=== PATIENT | female | born 1990 | race Caucasian/White ===

== ENCOUNTER 2017-09-25 11:01 | Day surgery (SDC) | payer OTHER ==
[2017-09-25] MEDS ORDERED: Metoclopramide IV* 5 MG/ML 2 ML VIAL IV ONE (12:19)
[2017-09-25 12:30] LABS: ABS Basophils 0 10^3/ul (0-0.2); ABS Eosinophils 0.1 10^3/ul (0-0.6); ABS Lymphocytes 0.5 10^3/ul (1.0-4.8); ABS Monocytes 0.6 10^3/ul (0-0.8); ABS Neutrophils 12.6 10^3/ul (1.5-7.7); ABS Nucleated RBC 0 10^3/ul; Eosinophil % 0.4 % (0-6); Hematocrit 40 % (35-47); Hemoglobin 13.7 g/dl (12.0-16.0); Lymphocyte % 3.5 % (25-47); Mean Corpuscular HGB Conc 35 g/dl (31-36); Mean Corpuscular Hemoglobin 30 pg (27-31); Mean Corpuscular Volume 88 fL (80-97); Mean Platelet Volume 6.5 um3 (7.4-10.4); Nucleated Red Blood Cells % 0.1; Platelet Count 249 10^3/ul (150-450); Red Blood Count 4.52 10^6/ul (4.0-5.4); Red Cell Distribution Width 13 % (10.5-15); White Blood Count 13.7 10^3/ul (3.5-10.8)
[2017-09-25 12:49] LABS: EGFR Non-African American 121.8 (>60)
--- NOTE | 2017-09-25 13:28 | RAD ---
HISTORY: Right lower quadrant pain COMPARISONS: None TECHNIQUE: Multiple transverse and longitudinal ultrasound images were obtained of the right lower quadrant using grayscale and color Doppler imaging. FINDINGS: There is tubular, vermiform, hollow viscus with bowel mucosal signature. This is noncompressible. This measures up to 0.8 cm in diameter. There is mild wall thickening. IMPRESSION: MILDLY DILATED APPENDIX SUGGESTIVE OF ACUTE APPENDICITIS IN THE CORRECT CLINICAL SETTING. THERE IS NO LOCULATED FLUID COLLECTION TO SUGGEST ABSCESS.
[2017-09-25] MEDS ORDERED: Buffered Lidocaine 0.9% SYRIN* 5 ML/SYR SYRINGE INTRADERM ONE (14:14)
[2017-09-25 14:40] LABS: Urine Appearance Clear; Urine Blood Negative (Negative); Urine Color Yellow; Urine Ketones Negative (Negative); Urine Protein Negative (Negative); Urine Specific Gravity 1.008 (1.010-1.030); Urine Urobilinogen Negative (Negative)
--- NOTE | 2017-09-25 15:54 | HP ---
CC: [facility]* DATE OF ADMISSION: 09/25/2017. This patient was seen in the [facility] Emergency Department on 09/25/2017. ATTENDING SURGEON: Dr. Chele Dukes* (dictated by Colleen Sierra NP). CHIEF COMPLAINT: Worsening right lower quadrant abdominal pain. 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 She vomited once. The pain continued throughout the night, but she went to work this morning. The pain worsened throughout the day, especially with any movement. She reports that initially the abdominal pain was more generalized, but now it has localized to the right lower quadrant. She denies any fever or chills. Her last bowel movement was yesterday, described as normal. She denies any dysuria. She last ate yogurt, berries, and a piece of toast at 7:30 this morning and she also drank something at 7:30 this morning. She reports that last week several of her colleagues had some type of viral illness and she was feeling very tired, but denied abdominal pain or associated nausea, vomiting, or fever. She underwent an ultrasound of the appendix which was suggestive of acute appendicitis and her white blood count was elevated at 13.7. Temperature maximum in the emergency department was 99.6. 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 She also reports slight mitral valve regurgitation. She states that she bruises easily and heals slowly. PAST SURGICAL HISTORY: She has never had any surgery. CURRENT MEDICATIONS: Midodrine, Topiramate, Cromolyn Sodium, Wellbutrin, Adderall, Doxycycline for a facial rash, Clindamycin topical for facial rash, and she also has an IUD. ALLERGIES: LATEX. She does not have any known drug allergies. FAMILY HISTORY: Her parents are living, but she has no contact with them. She states that there is a heavy family history of substance abuse and therefore she prefers not to have any opioid prescriptions for postoperative pain. 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 She is a nonsmoker. She denies the use of alcohol or other substances. REVIEW OF SYSTEMS: Constitutional: No fevers or chills. She did feel fatigued last week. She denies any weight loss. Respiratory: No chronic cough or dyspnea on exertion. Cardiovascular: No chest pain or palpitations. Gastrointestinal: No diarrhea or constipation. No GI bleeding. No history of Crohn's disease or colitis. Please see history of present illness for other GI complaints. Genitourinary: No dysuria. No vaginal discharge. Musculoskeletal : Chronic joint pain associated with connective tissue disease. Hypermobility of the joints. Neurologic: No blurred vision. No headache. No history of seizures. General: No history of deep vein thrombosis or pulmonary embolism. She has never received a blood transfusion. PHYSICAL EXAMINATION GENERAL: The patient is a 27-year-old female, well-developed, well-nourished, in no acute distress. VITAL SIGNS: Height 5'8", weight 120 pounds, body mass index 18. Blood pressure 112/64, pulse anywhere from 80 to 100, respiratory rate 18, temperature 99.6, O2 saturation 99 percent on room air. SKIN: Warm, dry, intact. HEENT: Benign. NECK: Supple, no cervical lymphadenopathy. LUNGS: Breath sounds bilaterally clear and equal. HEART: Regular rate and rhythm. No murmurs or rubs appreciated. ABDOMEN: Flat, hypoactive bowel sounds, exquisitely tender in the right lower quadrant over McBurney's point. Mild guarding and rebound tenderness. No obvious masses or organomegaly, but exam is limited by patient's discomfort. EXTREMITIES: Full range of motion. No edema or skin ulcerations. PELVIC: Exam deferred. RECTAL: Exam deferred. NEUROLOGIC: Alert and oriented times three. Steady gait. IMPRESSION: Acute appendicitis. PLAN: Discussed with Dr. Dukes and the patient will go to the operating room later today for laparoscopic appendectomy. TIME SPENT: 60 minutes with greater than 50 percent in face to face history taking and coordination of care. CAROEL SIERRA NP [id number]/[facility] #: [id number] MTDD
[2017-09-25] MEDS ORDERED: ceFAZolin 2 GM PREMIX (*) 2 GM/50 ML BAG IVPB ONE (17:00)
--- NOTE | 2017-09-25 17:33 | ED ---
Abdominal Pain/Female - HPI Summary HPI Summary: Patient is a 27-year-old female who is otherwise healthy presenting to the ED with a chief complaint of right lower quadrant pain, nausea, vomiting since yesterday. She states the pain has been intermittent and is worse now on arrival. She states she feels much improved if she is leaning forward, and symptoms are aggravated by standing up straight or lying flat. She has a decreased appetite. Denies any fevers, sweats, chills. She has never had an abdominal surgery. Denies history of STDs. Denies any vaginal bleeding or vaginal discharge. Denies any UTI symptoms. No history of kidney stones and denies any back pain. Last by mouth intake this morning. - History of Current Complaint Chief Complaint: EDAbdPain Stated Complaint: ABD PAIN Time Seen by Provider: 09/25/17 11:55 Hx Obtained From: Patient ?: No Onset/Duration: Sudden Onset Timing: Constant Severity Initially: Moderate Severity Currently: Moderate Pain Intensity: 0 Pain Scale Used: 0-10 Numeric Location: Discrete At: RLQ Radiates: No Character: Sharp Aggravating Factor(s): Nothing Alleviating Factor(s): Nothing Associated Signs and Symptoms: Positive: Negative - Risk Factors Ectopic Risk Factor: Negative Ovarian Torsion Risk Factor: Negative Allergies/Adverse Reactions: Allergies Allergy/AdvReac Type Severity Reaction Status Date / Time Latex, Natural Rubber Allergy Rash Verified 09/25/17 12:54 Home Medications: Home Medications Amphetamine MIXED SALT TAB* [Adderall TAB*] 10 mg PO TID PRN 09/25/17 [History Confirmed 09/25/17] BuPROPion XL* [Bupropion XL*] 300 mg PO DAILY 09/25/17 [History Confirmed ] Cetirizine* [ZyrTEC 10 MG TAB*] 10 mg PO DAILY 09/25/17 [History Confirmed 09/25] Cromolyn Sodium [Gastrocrom] 100 mg PO QID 09/25/17 [History Confirmed 09/25/17] Doxycycline TAB(NF) [Doxycycline (NF)] 50 mg PO DAILY 09/25/17 [History Confirmed 09/25/17] Midodrine (NF) 10 mg PO TID PRN 09/25/17 [History Confirmed 09/25/17] Ranitidine TAB (NF) [Zantac TAB (NF)] 150 mg PO DAILY 09/25/17 [History Confirmed 09/25/17] PMH/Surg Hx/FS Hx/Imm Hx Previously Healthy: Yes - Immunization History Hx Pertussis Vaccination: No Immunizations Up to Date: Unable to Obtain/Confirm Infectious Disease History: No Infectious Disease History: Denies: Traveled Outside the [place] in Last 30 Days - Social History Occupation: Employed Full-time Lives: With Family Alcohol Use: None Hx Substance Use: No Substance Use Type: Reports: None Hx Tobacco Use: No Smoking Status (MU): Never Smoked Tobacco Review of Systems Constitutional: Negative Negative: Fever, Chills, Fatigue, Skin Diaphoresis Eyes: Negative Cardiovascular: Negative Respiratory: Negative Positive: Abdominal Pain, Vomiting, Nausea. Negative: Diarrhea Genitourinary: Negative Positive: no symptoms reported, see HPI Musculoskeletal: Negative Skin: Negative Psychological: Normal All Other Systems Reviewed And Are Negative: Yes Physical Exam Triage Information Reviewed: Yes Vital Signs On Initial Exam: Initial Vitals Temp Pulse Resp BP Pulse Ox 99.6 F 112 18 117/74 98 09/25/17 11:43 09/25/17 11:43 09/25/17 11:43 09/25/17 11:43 09/25/17 11:43 Vital Signs Reviewed: Yes Appearance: Positive: Well-Appearing, Well-Nourished Skin: Positive: Warm, Skin Color Reflects Adequate Perfusion Head/Face: Positive: Normal Head/Face Inspection Eyes: Positive: EOMI, JOHN, Conjunctiva Clear Neck: Positive: Supple, No Lymphadenopathy Respiratory/Lung Sounds: Positive: Clear to Auscultation, Breath Sounds Present Cardiovascular: Positive: RRR, Pulses are Symmetrical in both Upper and Lower Extremities Abdomen Description: Positive: Soft, McBurney's Point Tenderness. Negative: CVA Tenderness (R), CVA Tenderness (L), Distended Bowel Sounds: Positive: Present Musculoskeletal: Positive: Normal, Strength/ROM Intact Neurological: Positive: Speech Normal Psychiatric: Positive: Normal, Affect/Mood Appropriate AVPU Assessment: Alert Diagnostics - Vital Signs Vital Signs Temp Pulse Resp BP Pulse Ox 09/25/17 17:02 98.6 F 88 16 131/67 100 09/25/17 14:58 98.3 F 80 16 112/72 99 09/25/17 14:03 98.6 F 79 16 112/64 99 09/25/17 11:43 99.6 F 112 18 117/74 98 - Laboratory Lab Results: Lab Results 09/25/17 09/25/17 09/25/17 Range/Units 12:24 12:24 12:24 WBC 13.7 H (3.5-10.8) 10^3/ul RBC 4.52 (4.0-5.4) 10^6/ul Hgb 13.7 (12.0-16.0) g/dl Hct 40 (35-47) % MCV 88 (80-97) fL MCH 30 (27-31) pg MCHC 35 (31-36) g/dl RDW 13 (10.5-15) % Plt Count 249 (150-450) 10^3/ul MPV 6.5 L (7.4-10.4) um3 Neut % (Auto) 91.6 H (38-83) % Lymph % (Auto) 3.5 L (25-47) % [place] % (Auto) 4.2 (0-7) % Eos % (Auto) 0.4 (0-6) % Baso % (Auto) 0.3 (0-2) % Absolute Neuts (auto) 12.6 H (1.5-7.7) 10^3/ul Absolute Lymphs (auto) 0.5 L (1.0-4.8) 10^3/ul Absolute Monos (auto) 0.6 (0-0.8) 10^3/ul Absolute Eos (auto) 0.1 (0-0.6) 10^3/ul Absolute Basos (auto) 0 (0-0.2) 10^3/ul Absolute Nucleated RBC 0 10^3/ul Nucleated RBC % 0.1 ESR 10 (0-14) mm/Hr Sodium 140 (139-145) mmol/L Potassium 3.3 L (3.5-5.0) mmol/L Chloride 107 (101-111) mmol/L Carbon Dioxide 27 (22-32) mmol/L Anion Gap 6 (2-11) mmol/L BUN 9 (6-24) mg/dL Creatinine 0.60 (0.51-0.95) mg/dL Est GFR ( Amer) 156.7 (>60) Est GFR (Non-Af Amer) 121.8 (>60) BUN/Creatinine Ratio 15.0 (8-20) Glucose 96 (70-100) mg/dL Lactic Acid 0.8 (0.5-2.0) mmol/L Calcium 9.0 (8.6-10.3) mg/dL Total Bilirubin 0.80 (0.2-1.0) mg/dL AST 16 (13-39) U/L ALT 14 (7-52) U/L Alkaline Phosphatase 65 (34-104) U/L C-React Prot High Sens 16.16 mg/L Total Protein 6.3 L (6.4-8.9) g/dL Albumin 4.2 (3.2-5.2) g/dL Globulin 2.1 (2-4) g/dL Albumin/Globulin Ratio 2.0 (1-3) Beta HCG, Quant < 0.60 mIU/mL Urine Color Urine Appearance Urine pH (5-9) Ur Specific [place] (1.010-1.030) Urine Protein (Negative) Urine Ketones (Negative) Urine Blood (Negative) Urine Nitrate (Negative) Urine Bilirubin (Negative) Urine Urobilinogen (Negative) Ur Leukocyte Esterase (Negative) Urine Glucose (Negative) 09/25/17 Range/Units 14:27 WBC (3.5-10.8) 10^3/ul RBC (4.0-5.4) 10^6/ul Hgb (12.0-16.0) g/dl Hct (35-47) % MCV (80-97) fL MCH (27-31) pg MCHC (31-36) g/dl RDW (10.5-15) % Plt Count (150-450) 10^3/ul MPV (7.4-10.4) um3 Neut % (Auto) (38-83) % Lymph % (Auto) (25-47) % [place] % (Auto) (0-7) % Eos % (Auto) (0-6) % Baso % (Auto) (0-2) % Absolute Neuts (auto) (1.5-7.7) 10^3/ul Absolute Lymphs (auto) (1.0-4.8) 10^3/ul Absolute Monos (auto) (0-0.8) 10^3/ul Absolute Eos (auto) (0-0.6) 10^3/ul Absolute Basos (auto) (0-0.2) 10^3/ul Absolute Nucleated RBC 10^3/ul Nucleated RBC % ESR (0-14) mm/Hr Sodium (139-145) mmol/L Potassium (3.5-5.0) mmol/L Chloride (101-111) mmol/L Carbon Dioxide (22-32) mmol/L Anion Gap (2-11) mmol/L BUN (6-24) mg/dL Creatinine (0.51-0.95) mg/dL Est GFR ( Amer) (>60) Est GFR (Non-Af Amer) (>60) BUN/Creatinine Ratio (8-20) Glucose (70-100) mg/dL Lactic Acid (0.5-2.0) mmol/L Calcium (8.6-10.3) mg/dL Total Bilirubin (0.2-1.0) mg/dL AST (13-39) U/L ALT (7-52) U/L Alkaline Phosphatase (34-104) U/L C-React Prot High Sens mg/L Total Protein (6.4-8.9) g/dL Albumin (3.2-5.2) g/dL Globulin (2-4) g/dL Albumin/Globulin Ratio (1-3) Beta HCG, Quant mIU/mL Urine Color Yellow Urine Appearance Clear Urine pH 7.0 (5-9) Ur Specific [place] 1.008 L (1.010-1.030) Urine Protein Negative (Negative) Urine Ketones Negative (Negative) Urine Blood Negative (Negative) Urine Nitrate Negative (Negative) Urine Bilirubin Negative (Negative) Urine Urobilinogen Negative (Negative) Ur Leukocyte Esterase Negative (Negative) Urine Glucose Negative (Negative) Result Diagrams: 09/25/17 12:24 09/25/17 12:24 Lab Statement: Any lab studies that have been ordered have been reviewed, and results considered in the medical decision making process. Abdominal Pain Fem Course/Dx - Course Course Of Treatment: Due to patient's BMI, US appendix obtained. Labs obtained which show a 13.8 elevated white count. She was tachycardia on arrival, otherwise vital signs are stable. Tenderness over McBurney's point. Positive Rovsing's, negative Santos's. Likely appendicitis. IMPRESSION: MILDLY DILATED APPENDIX SUGGESTIVE OF ACUTE APPENDICITIS IN THE CORRECT CLINICAL SETTING. Pain medications were offered, however she declines. THERE IS NO LOCULATED FLUID COLLECTION TO SUGGEST ABSCESS. Discussed the case with Dr. Dukes. Will take to the OR. - Diagnoses Differential Diagnosis: Positive: Appendicitis Provider Diagnoses: Appendicitis Discharge - Sign-Out/Discharge Documenting (check all that apply): Discharge/Admit/Transfer - Discharge Plan Condition: Stable Disposition: ADMITTED TO [facility] - Billing Disposition and Condition Condition: STABLE Disposition: [facility] [place]
[2017-09-25] MEDS ORDERED: fentaNYL* 50 MCG/ML 2 ML VIAL (100 MCG VIAL) ONE (17:49)
[2017-09-25] MEDS ORDERED: Famotidine IV* 10 MG/ML 2 ML (20 mg) ONE (17:49)
[2017-09-25] MEDS ORDERED: Propofol* 10 MG/ML 20 ML BTL IV PUSH ONE (17:49)
[2017-09-25] MEDS ORDERED: Midazolam* 1 MG/ML 2 ML VIAL (2 MG) ONE (17:49)
[2017-09-25] MEDS ORDERED: Lidocaine 2% PF * 5 ML VIAL ONE (17:49)
[2017-09-25] MEDS ORDERED: Dexamethasone IV* 4 MG/ML 1 ML (4 MG) ONE (17:49)
[2017-09-25] MEDS ORDERED: Dexmedetomidine* 200 MCG/2 ML 2 ML VIAL ONE (18:39)
[2017-09-25] MEDS ORDERED: Ketorolac INJ* 30 MG/ML 1 ML VIAL ONE (18:54)
[2017-09-25] MEDS ORDERED: DiMENhydriNATE IV* 50 MG/ML VIAL IV PUSH PRN (19:42)
[2017-09-25] MEDS ORDERED: Ondansetron INJ* 2 MG/ML VIAL IV PRN (19:42)
[2017-09-25] MEDS ORDERED: PROCHLORPERAZINE INJ 5 MG/ML 2 ML VIAL IV PRN (19:42)
[2017-09-25] MEDS ORDERED: Acetaminophen TAB* 325 MG PO PRN (19:42)
[2017-09-25] MEDS ORDERED: Naloxone* 0.4 MG/ML 1 ML VIAL IV PRN (19:42)
[2017-09-25] MEDS ORDERED: Acetaminophen IV 1GM/100ML * 1,000 MG/100 ML VIAL IVPB PRN (19:42)
[2017-09-25] MEDS ORDERED: fentaNYL* 50 MCG/ML 2 ML VIAL (100 MCG VIAL) IV PRN (19:42)
--- NOTE | 2017-09-25 19:44 | BRIEFOPN ---
Brief Operative Note - Surgery Procedures: OPERATIVE REPORT PRE-OP: Acute appendicitis POST-OP: Acute gangrenous appendicitis PROCEDURE: Laparoscopic appendectomy SURGEON: MD Ernst ANESTHESIA:Local with General; Dr. Coombs ASST: none IVF: 1 liter of crystalloid EBL: min SPECIMEN: Appendix DRAIN: none WOUND CLASS:3 COMPLICATIONS: none TO PACU
[2017-09-25] MEDS ORDERED: Piperacillin/Tazobac ADVAN(*) 3.375 GM in NS 0.9% 100 ML* 100 ML IVPB ONE (20:00)
[2017-09-25 21:03] VITALS: BP 110/74
--- NOTE | 2017-09-26 17:02 | OP ---
CC: [facility] * DATE OF OPERATION: 09/25/17 - SDS DATE OF : 89 SURGEON: Chele Dukes MD SECURITY REPRESENTATIVE: None. ANESTHESIOLOGIST: Dr. Coombs. ANESTHESIA: General with local. PRE-OP DIAGNOSIS: Acute appendicitis. POST-OP DIAGNOSIS: Acute gangrenous appendicitis. OPERATIVE PROCEDURE: Laparoscopic appendectomy. ESTIMATED BLOOD LOSS: Minimal. WOUND CLASSIFICATION: III. COMPLICATIONS: None. SPECIMENS: Appendix. DRAINS: None. FINDINGS: The proximal half of the appendix was gangrenous and there was some purulent fluid in the pelvis in the right lower quadrant. No evidence of perforation or abscess. 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 The pain persisted through the night and worsened over the course of the day becoming worse in the right lower quadrant. She presented to the emergency room, was noted to have a mild leukocytosis and tenderness on exam in the right lower quadrant of her abdomen. An ultrasound was performed and reviewed and was noted to visualize a thickened dilated appendix with probable periappendiceal fluid consistent with acute appendicitis "in the appropriate clinical setting." After seeing the patient in consultation, it was noted that she had exquisite right lower quadrant tenderness with voluntary guarding and a history consistent with acute appendicitis. These findings were discussed with her and after our discussion, it was recommended that she undergo a laparoscopic appendectomy today. We discussed the risks, benefits, and including the treatment of appendicitis with antibiotics and not surgery and also the fact that that is not a standard of care here in [facility] and after our discussion, she gives consent to proceed with an appendectomy. The procedure was discussed with her, the risks, but not limited to, bleeding, infection, intra-abdominal abscess formation, injury to peritoneal and retroperitoneal structures, possibility of an open procedure, abscess formation , poor wound healing due to the fact that she has Sho-Danlos disease was all discussed with her. In addition, the risk of general anesthesia, deep vein thrombosis and pulmonary embolism, and activity restrictions were all explained. DESCRIPTION OF PROCEDURE: Written informed consent was obtained, the abdomen was marked with indelible ink and preoperative antibiotics were administered. The patient was taken to the operating room and placed in the supine position. Sequential compression devices and warming blanket were applied. General anesthesia was administered. Time-out verification was completed. Initially, a small transverse incision was made just below the umbilicus. The midline of the peritoneal cavity was entered under direct vision. A 12-mm blunt port was inserted and the abdomen was insufflated to 15 mmHg. Under direct vision, a 5-mm port was placed in the left lower quadrant of the abdomen and a second 5-mm port was placed in the suprapubic position. It was evident that there was some purulent turbid fluid in both the pelvis and the right lower quadrant. The terminal ileum and cecum appeared to be unremarkable. The appendix was identified. Its proximal half was distended, thick walled and gangrenous in appearance. The distal half was quite collapsed and inflamed with some suppuration along its serosa, all findings consistent with acute appendicitis. There was no evidence of abscess or perforation however. The appendix was somewhat retrocecal and curved around on itself and I did divide the lateral peritoneal attachments to free this up and bring the entire appendix up into view and its mesentery, which was indurated and edematous, was divided sequentially with the LigaSure device down to the base of the appendix. The cecum appeared to be unremarkable and viable. Once this dissection was completed, I used a sanchez load of a 60 mm stapler, stapled across the cecum with the generous sized staple line to assure myself that this included viable tissue, as again noted was the inflammatory change of the appendix went right to its base at its junction with the cecum. Once this was done, the appendix was placed in an EndoCatch bag and brought out through the umbilical incision. Staple line was inspected and it appeared to be viable and without evidence of bleeding and was completely intact. The right lower quadrant and pelvis were then irrigated with saline until clear. All ports removed under direct vision of the camera. The umbilical fascia was closed with interrupted 0 Vicryl suture. The skin at all 3 incisions was approximated with subcuticular 4-0 Polysorb suture. Steri-Strips were applied. The patient tolerated the procedure well and was taken to the recovery room in stable condition. [id number]/[facility] #: [id number] [facility] HOSPITALAyleen
== END 2017-09-25 21:33 | disposition home or self-care (01) ==
LOC: ED 11:01 → OR 15:26
PROVIDERS: ATTEND Surgery
DX: K35.80 Unspecified acute appendicitis (principal); R10.31 Right lower quadrant pain; D72.829 Elevated white blood cell count, unspecified; Q79.6 Ehlers-Danlos syndromes; K21.9 Gastro-esophageal reflux disease without esophagitis
CPT/HCPCS: 36415; 76705; 80053; 81003; 83605; 84702; 85025; 85652; 86141; 88304; 99284; J0690; J1100; J1885; J2250; J2543; J2704; J3010